=== PATIENT | male | born 1975 | race Caucasian/White ===

== ENCOUNTER 2018-07-27 10:52 | Emergency (ER) | payer OTHER ==
[2018-07-27] MEDS ORDERED: IBUPROFEN 600 MG TAB PO ONE ×2 (11:09→11:10)
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
[2018-07-27] MEDS ORDERED: NS 1,000 ML IV ONE (12:28)
[2018-07-27] MEDS ORDERED: IOPAMIDOL (ISOVUE-300) 100 ML BTL ONE (12:54)
[2018-07-27 14:06] LABS: PLATELET COUNT 220 10^3/uL (150-400)
[2018-07-27] MEDS ORDERED: HYDROCODONE/APAP 5/325 TAB PO PRN (14:37)
[2018-07-27] MEDS ORDERED: HYDROCOD/APAP 5/325 PREPACK#6 BTL TAKEHOME ONE ×2 (14:37→14:56)
[2018-07-27] MEDS ORDERED: HYDROCODONE/APAP 5/325 TAB ONE (14:45)
--- NOTE | 2018-07-27 14:57 | PDCONSULT ---
Cardiology Tech Note: #[id number] Surgery/Trauma consult dictated S MD Deandra, FACS
[2018-07-27 15:11] VITALS: BP 116/75
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
== END 2018-07-27 15:10 | disposition home or self-care (01) ==
DX: S20.212A Contusion of left front wall of thorax, initial encounter (principal); R10.12 Left upper quadrant pain; V49.40XA Driver injured in collision with unspecified motor vehicles in traffic accident, initial encounter; Y92.411 Interstate highway as the place of occurrence of the external cause; Y93.9 Activity, unspecified; Y99.9 Unspecified external cause status
CPT/HCPCS: 82435-PO; 82565-PO; 82947-PO; 84132-PO; 84295-PO; 84520-PO; 85014-PO; Q9967